=== PATIENT | female | born 1960 | race Caucasian/White ===

== ENCOUNTER 2019-08-21 17:08 | Emergency (ER) | payer OTHER ==
[~2019-08-21] VITALS: Ht 157.5 cm; Wt 61.3 kg
[2019-08-21 17:43] VITALS: BP 177/88
[2019-08-21] MEDS ORDERED: DIPHTH,PERTUSS(ACELL),TET TOX 0.5 ML DISP.SYRIN. VAX IM ONE (18:00)
[2019-08-21] MEDS ORDERED: LIDOCAINE 1% PF 2 ML VIAL. INJ ONE (18:00)
[2019-08-21] MEDS ORDERED: NEOMY/BACITR/POLYMYXIN OINT PACKET. TP ONE (18:00)
[2019-08-21] MEDS ORDERED: CEPH-264 PO (19:13)
--- NOTE | 2019-08-21 19:13 | PHYS DOC ---
Past Medical History Past Medical History: No Pertinent History (MASON MONTENEGRO APRN) Past Surgical History: No Surgical History (MASON MONTENEGRO APRN) Smoking Status: Never Smoker Alcohol Use: None (MASON MONTENEGRO APRN) Attending Signature I have participated in the care of this patient and I have reviewed and agree with all pertinent clinical information above including history, exam, and recommendations. (KENYA PERALTA MD) Adult General Chief Complaint Chief Complaint: LACERATION/AVULSION HPI HPI Patient is a 59 year old female, accompanied by her , who presents to the emergency department with complaints of a laceration to the medial aspect of her right thumb. Patient states she was using a mandolin to cut potatoes when she accidentally cut her thumb. She is unsure when her last tetanus shot was. She denies any decreased range of motion or decreased sensation of the affected digit. She currently rates her pain 8 out of 10 on pain scale, she denies any alleviating factors, the pain is worse with touch and movement. (MASON MONTENEGRO APRN) Review of Systems Review of Systems Constitutional: Denies fever or chills [] Eyes: Denies change in visual acuity, redness, or eye pain [] HENT: Denies nasal congestion or sore throat [] Respiratory: Denies cough or shortness of breath [] Cardiovascular: No additional information not addressed in HPI [] GI: Denies abdominal pain, nausea, vomiting, bloody stools or diarrhea [] : Denies dysuria or hematuria [] Musculoskeletal: Denies back pain or joint pain [] Integument: Denies rash or skin lesions [] Neurologic: Denies headache, focal weakness or sensory changes [] Endocrine: Denies polyuria or polydipsia [] All other systems were reviewed and found to be within normal limits, except as documented in this note. (MASON MONTENEGRO APRN) Current Medications Current Medications Current Medications Medications (Trade) Dose Ordered Sig/Allan Start Time Stop Time Status Last Admin Dose Admin Diphtheria/ Tetanus/Acell Pertussis (Boostrix) 0.5 ml ONCE ONCE 08/21/19 18:00 08/21/19 18:02 DC 08/21/19 18:07 0.5 ML Lidocaine HCl (Xylocaine-Mpf 1% 2ml Vial) 6 ml 1X ONCE 2/20/20 18:00 08/21/19 18:02 DC 08/21/19 18:06 6 ML Neomycin/ Polymyxin/ Bacitracin (Triple Antibiotic Ointment) 1 pkt 1X ONCE 08/21/19 18:00 08/21/19 18:02 DC 08/21/19 18:06 1 PKT (KENYA PERALTA MD) Allergies Allergies Allergies Coded Allergies Type Severity Reaction Last Updated Verified No Known Drug Allergies 08/21/19 No (KENYA PERALTA MD) Physical Exam Physical Exam Constitutional: Well developed, well nourished, no acute distress, non-toxic appearance. [] HENT: Normocephalic, atraumatic, bilateral external ears normal, nose normal. [] Eyes: PERRLA, EOMI, conjunctiva normal, no discharge. [] Neck: Normal range of motion, no stridor. [] Cardiovascular:Heart rate regular rhythm Lungs & Thorax: Respirations even and unlabored, no retractions, no respiratory distress Skin: Warm, dry, no erythema, no rash; 2.5 x 1 cm laceration/avulsion to medial aspect of right thumb through the nailbed. Bleeding controlled with pressure held by. [] Extremities: Right thumb: No bony tenderness, no cyanosis, no clubbing, ROM intact, no edema. [] Neurologic: Alert and oriented X 3, no focal deficits noted. [] Psychologic: Affect normal, judgement normal, mood normal. [] (MASON MONTENEGRO APRN) Current Patient Data Vital Signs Vital Signs Date Time Temp Pulse Resp B/P (MAP) Pulse Ox O2 Delivery O2 Flow Rate FiO2 08/21/19 17:43 98.0 57 20 177/88 (117) 98 Room Air 98.0 (KENYA PERALTA MD) EKG EKG [] (MASON MONTENEGRO APRN) Radiology/Procedures Radiology/Procedures Laceration Repair by me: Anesthesia: 1% lidocaine locally Location: R thumb Tendon/Joint/Nerves: No injury Foreign body: None detected after copious irrigation and exploration with 400 ml NS Technique: 13 Simple Interrupted Sutures with 4-0 Ethilon Complexity: No subcutaneous sutures/mucosal repair/edge excision Post Closure Length: 4 cm Patient's bleeding was easily controlled in the department and there is no indication of anemia. No evidence of compartment syndrome, neurologic injury, vascular injury, open joint, tendon laceration, or foreign body. Patient is appropriate for outpatient follow up. 48 hour wound check. (MASON MONTENEGRO APRN) Course & Med Decision Making Course & Med Decision Making Pertinent Labs and Imaging studies reviewed. (See chart for details) [] (MASON MONTEENGRO APRN) Dragon Disclaimer Dragon Disclaimer This electronic medical record was generated, in whole or in part, using a voice recognition dictation system. (MASON MONTENEGRO APRN) Departure Departure Impression: Primary Impression: Laceration of right thumb without foreign body with damage to nail Additional Impression: Need for Tdap vaccination Disposition: HOME, SELF-CARE Condition: STABLE Referrals: YASMINE HO DO (PCP) Patient Instructions: Fingertip Laceration, Laceration Care, Adult, [id number], VIS, Tetanus, Diphtheria (Td); Tetanus, Diphtheria, Pertussis (Tdap) - [facility] Additional Instructions: Tylenol or ibuprofen as needed for pain. Fill the prescription and use as directed. Leave the dressing and splint that was applied in place until follow up with [facility], call their office at [phone] in the morning to arrange follow up. Return to the ER if symptoms worsen. Scripts Cephalexin (KEFLEX) 500 Mg Capsule 1 CAP PO TID for 7 Days, #21 CAP 0 Refills Prov: MASON MONTENEGRO APRN 08/21/19 Splinting Splinting : Location: right thumb Pre-Made Type: aluminum finger splint Pre-Proc Neuro Vasc Exam: normal Post-Proc Neuro Vasc Exam: normal, unchanged from pre-exam (MASON MONTENEGRO APRN) Problem Qualifiers Primary Impression: Laceration of right thumb without foreign body with damage to nail Encounter type: initial encounter Qualified Codes: S61.111A - Laceration without foreign body of right thumb with damage to nail, initial encounter MASON MONTENEGRO APRN Aug 21, 2019 19:13 KENYA PERALTA MD Aug 22, 2019 05:51
== END 2019-08-21 19:23 | disposition home or self-care (01) ==
LOC: ER 17:08
DX: S61.111A Laceration without foreign body of right thumb with damage to nail, initial encounter (principal); W26.8XXA Contact with other sharp object(s), not elsewhere classified, initial encounter; Y93.89 Activity, other specified; Y92.89 Other specified places as the place of occurrence of the external cause; Y99.8 Other external cause status
CPT/HCPCS: 12002; 90471; 90715; 99283; J3490